=== PATIENT | male | born 1980 ===

== ENCOUNTER 2017-03-13 01:13 | Observation (INO) | payer BC ==
[2017-03-13 01:28] VITALS: BMI 21.5
[2017-03-13] MEDS ORDERED: Sodium Chloride 0.9% 1,000 ML IV STA (01:58)
[2017-03-13 02:34] LABS: BASO # 0.1 K/uL (0.0-0.2); BASO % 0.7 % (0.0-2.0); EOS # 0.3 K/uL (0.0-0.7); EOS % 1.7 % (0.0-4.0); LYMPH # 3.3 K/uL (1.0-4.3); LYMPH % 20.8 % (20.0-40.0); MEAN CELL VOLUME 92.2 fl (80.0-94.0); MEAN CORPUSCULAR HEMOGLOBIN 31.4 pg (27.0-31.0); MEAN PLATELET VOLUME 9.2 fl (7.2-11.7); MONO # 1.2 K/uL (0.0-0.8); MONO % 7.6 % (0.0-10.0); NEUT % 69.2 % (50.0-75.0); NRBC % 0.1 % (0.0-0.0); RBC 5.41 Mil/uL (4.40-5.90); RED CELL DISTRIBUTION WIDTH 13.7 % (11.5-14.5); WHITE BLOOD COUNT 15.8 K/uL (4.8-10.8)
[2017-03-13 02:42] LABS: BLOOD UREA NITROGEN 5 mg/dl (9-20); GFR AFRICAN-AMERICAN > 60; GFR NON-AFRICAN AMERICAN > 60
[2017-03-13 02:44] LABS: CALCIUM 9.2 mg/dL (8.4-10.2)
[2017-03-13] MEDS ORDERED: Potassium Chloride 20 mEq ER Tab PO ONE ×4 (02:51→21:00)
--- NOTE | 2017-03-13 03:02 | ED PDOC ---
HPI: Neurologic - General Time Seen by Provider: 03/13/17 01:16 Chief Complaint (Nursing): Back Pain Chief Complaint (Provider): Diffused Body Aches and Paresthesia - History of Present Illness Associated Symptoms: paresthesia. denies: fever/chills, loss of consciousness, nausea/vomiting Allergies/Adverse Reactions: Allergies No Known Allergies Allergy (Verified 03/13/17 01:28) Home Medications: Ambulatory Orders Desvenlafaxine Succinate [Pristiq] 50 mg PO DAILY 03/13/17 Gabapentin [Neurontin] 300 mg PO TID 03/13/17 QUEtiapine [SEROquel] 50 mg PO DAILY 03/13/17 diaZEpam [Valium] 5 mg PO PRN PRN 03/13/17 Additional Complaint(s): Mario Potter, a 36 year old male, presents to the Ed complaining of diffused body aches and paresthesias all over his body x1 day. The patient states he was performing his daily routines but then he began to feel weak and his legs gave out. He states that when his legs gave out he fell and hit his head on the chair but did not lose consciousness. The patient states he eventually took his medications neurontin, valium and seroquel and went to sleep. He reports that he got up to use the bathroom and he fell again this time sustaining a left knee injury. The patient states that he then called the ambulance. Denies headache, vomiting, fevers chest pain abdominal pain dizziness, back pain, headache. Past Medical History Reviewed: Historical Data, Nursing Documentation, Vital Signs Vital Signs: Last Vital Signs Temp 98.1 F 03/13/17 01:23 Pulse 112 H 03/13/17 01:23 Resp 15 03/13/17 01:23 BP 140/88 03/13/17 01:23 Pulse Ox 98 03/13/17 01:23 - Medical History PMH: No Chronic Diseases - Surgical History Surgical History: No Surg Hx - Family History Family History: States: Unknown Family Hx - Home Medications Home Medications: Ambulatory Orders Medication Instructions Recorded Desvenlafaxine Succinate [Pristiq] 50 mg PO DAILY 03/13/17 Gabapentin [Neurontin] 300 mg PO TID 03/13/17 QUEtiapine [SEROquel] 50 mg PO DAILY 03/13/17 diaZEpam [Valium] 5 mg PO PRN PRN 03/13/17 - Allergies Allergies/Adverse Reactions: Allergies Allergy/AdvReac Type Severity Reaction Status Date / Time No Known Allergies Allergy Verified 03/13/17 01:28 Review of Systems ROS Statement: Except As Marked, All Systems Reviewed And Found Negative Constitutional: Negative for: Fever Cardiovascular: Negative for: Chest Pain Gastrointestinal: Negative for: Vomiting, Abdominal Pain Musculoskeletal: Negative for: Back Pain Neurological: Negative for: Headache, Dizziness Physical Exam - Reviewed Nursing Documentation Reviewed: Yes Vital Signs Reviewed: Yes - Physical Exam Appears: Positive for: Non-toxic, No Acute Distress Head Exam: Positive for: ATRAUMATIC, NORMAL INSPECTION, NORMOCEPHALIC Skin: Positive for: Normal Color, Warm Eye Exam: Positive for: Normal appearance, EOMI, PERRL ENT: Positive for: Normal ENT Inspection Neck: Positive for: Normal, Painless ROM, Supple Cardiovascular/Chest: Positive for: Regular Rate, Rhythm, Chest Non Tender. Negative for: Tachycardia Respiratory: Positive for: Normal Breath Sounds. Negative for: Wheezing, Respiratory Distress Gastrointestinal/Abdominal: Positive for: Normal Exam, Bowel Sounds, Soft. Negative for: Tenderness, Guarding, Rebound Back: Positive for: Normal Inspection Extremity: Positive for: Normal ROM. Negative for: Tenderness, Pedal Edema, Deformity, Swelling Neurologic/Psych: Positive for: Alert, customer liaison II-XII (cranial nerves intact), Oriented, Cerebellar Tests (cerebellar tests normal), Gait. Negative for: Motor /Sensory Deficits - Laboratory Results Result Diagrams: 03/13/17 02:28 03/13/17 02:28 - ECG ECG: Positive for: Interpreted By Me, Viewed By Me ECG Rhythm: Positive for: Normal QRS, Normal ST Segment, Sinus Rhythm, Nonspecific Changes Interpretation Of Abn EKG: Prolonged QT Rate: 89 O2 Sat by Pulse Oximetry: 98 (RA) Pulse Ox Interpretation: Normal Medical Decision Making Medical Decision Makin Initial Impression: 36 year old female presenting with myalgia with diffuse weakness Differentials: Rhabdomyolysis, myositis Initial Plan: * EKG * Drug Screen * Magnesium * Basic Metabolic Panel * Creatine Phosphate * CBC * Potassium Chloride 40 meq PO * NS 1000mls IV 1000mls/hr * Reevaluation Scribe Attestation Documented by Caitlin Devries acting as a scribe for Karen Dorado MD. Provider Attestation: All medical record entries made by the Scribe were at my direction and personally dictated by me. I have reviewed the chart and agree that the record accurately reflects my personal performance of the history, physical exam, medical decision making, and the department course for this patient. I have also personally directed, reviewed, and agree with the discharge instructions and disposition. ED OBSERVATION Date of observation admission: 03/13/17 Time of observation admission: 03:15 - Observation admission statement Patient is being placed in observation because:: Hypokalemia - Goals of Observation Goals of observation are:: Correction of hypokalemia with potassium supplements. Disposition - Clinical Impression Clinical Impression: Hypokalemia - Patient ED Disposition Is Patient to be Admitted: Yes Discussed With : Mariela Valdivia Doctor Will See Patient In The: ED Counseled Patient/Family Regarding: Studies Performed, Diagnosis - Disposition Disposition Time: 03:15 Condition: FAIR - Pt Status Changed To: Hospital Disposition Of: Observation - POA Present On Arrival: Poor Glycemic Control
[2017-03-13] MEDS: Potassium CL 10mEq/100ml 100 ML IVPB SCH ×3 (03:19→05:21)
[2017-03-13] MEDS ORDERED: Potassium CL 10mEq/100ml 100 ML IVPB ONE (06:07)
[2017-03-13] MEDS ORDERED: Magnesium Sulfate 2 GM in Sodium Chloride 0.9% 100 ML IVPB ONE (06:08)
[2017-03-13 08:29] LABS: URINE BILIRUBIN NEGATIVE (NEGATIVE); URINE BLOOD NEGATIVE (NEGATIVE); URINE CLARITY CLEAR (Clear); URINE COLOR STRAW (YELLOW); URINE GLUCOSE (UA) NEG (Normal); URINE LEUKOCYTE ESTERASE NEG Leu/uL (Negative); URINE NITRATE NEGATIVE (NEGATIVE); URINE PROTEIN NEGATIVE (NEGATIVE); URINE UROBILINOGEN 0.2-1.0 mg/dL (0.2-1.0)
[2017-03-13 08:46] LABS: BARBITURATES, UR NEGATIVE (NEGATIVE); BENZODIAZEPINES, UR POSITIVE (NEGATIVE); OPIATES, UR NEGATIVE (NEGATIVE); PHENCYCLIDINE, UR NEGATIVE (NEGATIVE)
[2017-03-13 10:01] LABS: HEMOGLOBIN 15.7 g/dL (12.0-18.0); MEAN CELL VOLUME 91.5 fl (80.0-94.0); MEAN CORPUSCULAR HEMOGLOBIN 31.3 pg (27.0-31.0); MEAN CORPUSCULAR HGB CONC 34.2 g/dL (33.0-37.0); RBC 5.02 Mil/uL (4.40-5.90); RED CELL DISTRIBUTION WIDTH 13.6 % (11.5-14.5); WHITE BLOOD COUNT 10.2 K/uL (4.8-10.8)
[2017-03-13 10:20] LABS: BLOOD UREA NITROGEN 6 mg/dl (9-20); CALCIUM 8.4 mg/dL (8.4-10.2); GFR AFRICAN-AMERICAN > 60; GFR NON-AFRICAN AMERICAN > 60; MAGNESIUM 2.2 MG/DL (1.6-2.3)
--- NOTE | 2017-03-13 11:35 | CT ---
PROCEDURE: CT HEAD WITHOUT CONTRAST. HISTORY: s/p fall COMPARISON: None available. TECHNIQUE: Axial computed tomography images were obtained through the head/brain without intravenous contrast. Coronal and sagittal reconstructed images. Radiation dose: Total exam DLP = 953.63 mGy-cm. This CT exam was performed using one or more of the following dose reduction techniques: Automated exposure control, adjustment of the mA and/or kV according to patient size, and/or use of iterative reconstruction technique. FINDINGS: HEMORRHAGE: No intracranial hemorrhage. BRAIN: No mass effect or edema. No atrophy or chronic microvascular ischemic changes. VENTRICLES: Unremarkable. No hydrocephalus. CALVARIUM: Unremarkable. PARANASAL SINUSES: Unremarkable as visualized. No significant inflammatory changes. MASTOID AIR CELLS: Unremarkable as visualized. No inflammatory changes. OTHER FINDINGS: None. IMPRESSION: No acute intracranial abnormalities. No significant findings to account for the clinical presentation.
--- NOTE | 2017-03-13 11:43 | CT ---
PROCEDURE: CT Lumbar Spine without contrast HISTORY: LE weakness, LBP COMPARISON: None. TECHNIQUE: Axial computed tomography images were obtained of the lumbar spine without the use of intravenous contrast. Coronal and sagittal reformatted images were created and reviewed. Radiation dose: Total exam DLP = 1736.56 mGy-cm. This CT exam was performed using one or more of the following dose reduction techniques: Automated exposure control, adjustment of the mA and/or kV according to patient size, and/or use of iterative reconstruction technique. FINDINGS: VERTEBRAE: Postoperative changes from laminectomy and fusion. Interpedicular screws and disc arthroplasty at multiple levels L4, L5 and 1st sacral element. No evidence of hardware failure or migration hardware. . DISCS/SPINAL CANAL/NEURAL FORAMINA: L1-2: Unremarkable. L2-3: Unremarkable. L3-4: Unremarkable. L4-5: Postoperative findings. L5-S1: Postoperative findings. PARASPINAL SOFT TISSUES: Unremarkable. OTHER FINDINGS: None. IMPRESSION: No evidence of vertebral body fracture. Normal vertebral body heights and alignment lower thoracic and upper lumbar region. Satisfactory position alignment of orthopedic hardware including disc arthroplasty and interpedicular screws L4, L5 and S1.
[2017-03-13] MEDS: Potassium Chloride 20 MEQ in Sodium Chloride 0.45% 1,000 ML IV SCH ×2 (11:45→23:10)
--- NOTE | 2017-03-13 12:08 | RAD ---
HISTORY: leukocytosis COMPARISON: No prior. TECHNIQUE: Chest PA and lateral FINDINGS: LUNGS: No active pulmonary disease. PLEURA: No significant pleural effusion identified. No pneumothorax apparent. CARDIOVASCULAR: Normal. OSSEOUS STRUCTURES: No significant abnormalities. VISUALIZED UPPER ABDOMEN: Normal. OTHER FINDINGS: None. IMPRESSION: No active disease. No preliminary report provided by emergency department personnel.
[2017-03-13] MEDS: Enoxaparin 40 mg Syringe SC SCH (13:46)
[2017-03-13 15:29] VITALS: RESP 20
[2017-03-13 19:11] LABS: T4 8.08 ug/dl (5.5-11.0)
[2017-03-13 19:25] LABS: T3 1.13 nmol/L (1.49-2.60)
--- NOTE | 2017-03-13 23:14 | CP.PCM.HP ---
Past Patient History - Past Medical History & Family History Past Medical History?: Yes - Past Social History Smoking Status: Never Smoked - CARDIAC Hx Cardiac Disorders: No - PULMONARY Hx Respiratory Disorders: No - NEUROLOGICAL Hx Neurological Disorder: No - HEENT Hx HEENT Problems: No - RENAL Hx Chronic Kidney Disease: No - ENDOCRINE/METABOLIC Hx Endocrine Disorders: No - HEMATOLOGICAL/ONCOLOGICAL Hx Blood Disorders: No - INTEGUMENTARY Hx Dermatological Problems: No - MUSCULOSKELETAL/RHEUMATOLOGICAL Hx Back Pain: Yes Hx Falls: Yes - GASTROINTESTINAL Hx Gastrointestinal Disorders: No - GENITOURINARY/GYNECOLOGICAL Hx Genitourinary Disorders: No - PSYCHIATRIC Hx Depression: Yes Hx Substance Use: No - SURGICAL HISTORY Hx Appendectomy: Yes Hx Orthopedic Surgery: Yes - ANESTHESIA Hx Anesthesia: Yes Hx Anesthesia Reactions: No Meds Allergies/Adverse Reactions: Allergies Allergy/AdvReac Type Severity Reaction Status Date / Time No Known Allergies Allergy Verified 03/13/17 01:28 Results - Vital Signs Recent Vital Signs: Last Vital Signs Temp 97.6 F 03/13/17 20:12 Pulse 91 H 03/13/17 20:12 Resp 20 03/13/17 20:12 BP 129/78 03/13/17 20:12 Pulse Ox 97 03/13/17 20:12 - Labs Result Diagrams: 03/13/17 09:45 03/13/17 09:45 Labs: Laboratory Results - last 24 hr 03/13/17 03/13/17 03/13/17 08:15 08:15 08:15 WBC RBC Hgb Hct MCV MCH MCHC RDW Plt Count ESR Sodium Potassium Chloride Carbon Dioxide Anion Gap BUN Creatinine Est GFR ( Amer) Est GFR (Non-Af Amer) POC Glucose (mg/dL) Random Glucose Hemoglobin A1c Lactic Acid Calcium Phosphorus Magnesium Total Creatine Kinase Thyroxine (T4) Total T3 TSH 3rd Generation Urine Color Straw Urine Clarity Clear Urine pH 6.0 Ur Specific [place] 1.006 Urine Protein Negative Urine Glucose (UA) Neg Urine Ketones Negative Urine Blood Negative Urine Nitrate Negative Urine Bilirubin Negative Urine Urobilinogen 0.2-1.0 Ur Leukocyte Esterase Neg Urine RBC (Auto) 2 Urine Microscopic WBC 1 Ur Random Sodium 58 Ur Random Potassium 3.5 Urine Opiates Screen Negative Urine Methadone Screen Negative Ur Barbiturates Screen Negative Ur Phencyclidine Scrn Negative Ur Amphetamines Screen Negative U Benzodiazepines Scrn Positive H U Oth Cocaine Metabols Negative U Cannabinoids Screen Negative 03/13/17 03/13/17 03/13/17 09:45 09:45 09:45 WBC 10.2 RBC 5.02 Hgb 15.7 Hct 45.9 MCV 91.5 MCH 31.3 H MCHC 34.2 RDW 13.6 Plt Count 211 ESR Sodium 142 Potassium 2.3 L* D Chloride 109 H Carbon Dioxide 24 Anion Gap 11 BUN 6 L Creatinine 0.9 Est GFR ( Amer) > 60 Est GFR (Non-Af Amer) > 60 POC Glucose (mg/dL) Random Glucose 138 H Hemoglobin A1c 5.4 Lactic Acid Calcium 8.4 Phosphorus Magnesium Total Creatine Kinase Thyroxine (T4) Total T3 TSH 3rd Generation 1.02 Urine Color Urine Clarity Urine pH Ur Specific [place] Urine Protein Urine Glucose (UA) Urine Ketones Urine Blood Urine Nitrate Urine Bilirubin Urine Urobilinogen Ur Leukocyte Esterase Urine RBC (Auto) Urine Microscopic WBC Ur Random Sodium Ur Random Potassium Urine Opiates Screen Urine Methadone Screen Ur Barbiturates Screen Ur Phencyclidine Scrn Ur Amphetamines Screen U Benzodiazepines Scrn U Oth Cocaine Metabols U Cannabinoids Screen 03/13/17 03/13/17 03/13/17 09:45 12:27 14:37 WBC RBC Hgb Hct MCV MCH MCHC RDW Plt Count ESR Sodium Potassium Chloride Carbon Dioxide Anion Gap BUN Creatinine Est GFR ( Amer) Est GFR (Non-Af Amer) POC Glucose (mg/dL) 111 H Random Glucose Hemoglobin A1c Lactic Acid 1.0 Calcium Phosphorus 2.1 L Magnesium 2.2 Total Creatine Kinase Thyroxine (T4) Total T3 TSH 3rd Generation Urine Color Urine Clarity Urine pH Ur Specific [place] Urine Protein Urine Glucose (UA) Urine Ketones Urine Blood Urine Nitrate Urine Bilirubin Urine Urobilinogen Ur Leukocyte Esterase Urine RBC (Auto) Urine Microscopic WBC Ur Random Sodium Ur Random Potassium Urine Opiates Screen Urine Methadone Screen Ur Barbiturates Screen Ur Phencyclidine Scrn Ur Amphetamines Screen U Benzodiazepines Scrn U Oth Cocaine Metabols U Cannabinoids Screen 03/13/17 03/13/17 03/13/17 16:07 18:28 18:28 WBC RBC Hgb Hct MCV MCH MCHC RDW Plt Count ESR 21 H Sodium Potassium Chloride Carbon Dioxide Anion Gap BUN Creatinine Est GFR ( Amer) Est GFR (Non-Af Amer) POC Glucose (mg/dL) 97 Random Glucose Hemoglobin A1c Lactic Acid Calcium Phosphorus Magnesium Total Creatine Kinase 355 H Thyroxine (T4) 8.08 Total T3 1.13 L TSH 3rd Generation 1.23 Urine Color Urine Clarity Urine pH Ur Specific [place] Urine Protein Urine Glucose (UA) Urine Ketones Urine Blood Urine Nitrate Urine Bilirubin Urine Urobilinogen Ur Leukocyte Esterase Urine RBC (Auto) Urine Microscopic WBC Ur Random Sodium Ur Random Potassium Urine Opiates Screen Urine Methadone Screen Ur Barbiturates Screen Ur Phencyclidine Scrn Ur Amphetamines Screen U Benzodiazepines Scrn U Oth Cocaine Metabols U Cannabinoids Screen 03/13/17 21:40 WBC RBC Hgb Hct MCV MCH MCHC RDW Plt Count ESR Sodium Potassium Chloride Carbon Dioxide Anion Gap BUN Creatinine Est GFR ( Amer) Est GFR (Non-Af Amer) POC Glucose (mg/dL) 149 H Random Glucose Hemoglobin A1c Lactic Acid Calcium Phosphorus Magnesium Total Creatine Kinase Thyroxine (T4) Total T3 TSH 3rd Generation Urine Color Urine Clarity Urine pH Ur Specific [place] Urine Protein Urine Glucose (UA) Urine Ketones Urine Blood Urine Nitrate Urine Bilirubin Urine Urobilinogen Ur Leukocyte Esterase Urine RBC (Auto) Urine Microscopic WBC Ur Random Sodium Ur Random Potassium Urine Opiates Screen Urine Methadone Screen Ur Barbiturates Screen Ur Phencyclidine Scrn Ur Amphetamines Screen U Benzodiazepines Scrn U Oth Cocaine Metabols U Cannabinoids Screen
[2017-03-14 01:54] LABS: BLOOD UREA NITROGEN 8 mg/dl (9-20); CALCIUM 8.5 mg/dL (8.4-10.2); GFR AFRICAN-AMERICAN > 60; GFR NON-AFRICAN AMERICAN > 60
[2017-03-14 05:16] VITALS: O2SAT 97
--- NOTE | 2017-03-14 05:46 | CON ---
DATE OF EVALUATION: 03/13/2017 REASON FOR CONSULTATION: Generalized weakness. CHIEF COMPLAINT: The patient was brought in to [facility] with a history of weakness, tend to fall at home. From neurological point of view, we have been called in to evaluate for his weakness. HISTORY OF PRESENT ILLNESS: Mr. Mario Potter is a 36-year-old right-handed well-built male in usual state of health, being presenting with 5 days' history of watery diarrhea and consumed Swedish food prior to the hospitalization. This morning, he woke up, sat up in the chair and he could not able to have strength to get up and he slid from the bed and hit his head. He could not be able to get up by himself. No history of loss of consciousness. No history of bowel or bladder incontinence at the scene. He got up on using stable structures next to him. PAST MEDICAL HISTORY: Significant for work related injury in the lower back resulting lumber stenosis and herniated disc required surgery in December 2014. He had artificial bone fused, then rejection of artificial bone and he did undergone followup surgery in December 2015. At this time, he had an autologous bone fusion with metallic plate being placed. When he had a second surgery, he did have a significant weakness. He was told that his potassium was low. At that time, he was following surgery, he was under medication. He could not quantify his weakness. PERSONAL HISTORY: Denies smoking or alcohol use. ALLERGIES: NO KNOWN ALLERGIES. MEDICATIONS: Quetiapine and gabapentin. PHYSICAL EXAMINATION: VITAL SIGNS: Blood pressure 108/70, mean arterial pressure of 82, respiratory rate 18, and temperature afebrile. NECK: Supple. No carotid bruits. CARDIOPULMONARY: Heart sounds regular. CHEST: Fair air entry. EXTREMITIES: No edema in legs. NEUROLOGIC EXAMINATION: MENTAL STATUS EXAMINATION: He is awake, alert, oriented to person, place, and time. Speech is clear. Naming, repetition, fluency, comprehension all within normal. CRANIAL NERVE EXAMINATION: Visual field intact. Pupil reactive to light. Extraocular movement normal. No nystagmus. No facial sensory deficit. No facial asymmetry. Hearing is normal. Tongue is midline. Good gag. MOTOR EXAMINATION: He has a significant weakness bilaterally comparing proximal more than his distal weakness. His neck flexion is 4/5. Hand seo intern is 4/5, proximal is 3+ to 4- or 5. There is no fasciculation at rest. DEEP TENDON REFLEXES: Biceps, brachialis, and triceps are absent. Both knees are 2+. Both ankles are 2+. Plantars are downgoing. SENSORY EXAMINATION: Grossly intact. COORDINATION: Gait could not be able to be done. Coordination also disproportionates due to his weakness, which is abnormal. EXAMINATION OF MUSCLES: No severe tenderness on palpation. CONCLUSION: Upon reviewing his history and neurological examination, Mr. Mario Potter has been presenting with generalized weakness of all muscle groups in proximal more than distally consistent with possible periodic paralysis. On reviewing his blood workup, this is secondary to periodic hypokalemic paralysis. The patient did have diarrhea and he consumed Swedish food, probably the risk factors to provoke his illness. He also had one episode following his surgery, which may be of stress-induced hypokalemia. 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 The current attack triggered by diarrhea and large serbian carbohydrate meal LABORATORY DATA: His blood workup; WBC 10.2, hemoglobin 15.7, hematocrit 45.9, platelet 211. Sodium 142, potassium 2.3, which was improved from 1.7 at the time of admission. Chloride 109, BUN is 6, and CPK 355. TSH 1.02. Magnesium 1.6. Urinalysis negative. Urine tox screen positive for benzos. RECOMMENDATIONS: 1. Continue hydration with potassium supplement. 2. Fall precaution. 3. Since he is taking oral food regularly, IV is not necessary, 4. No need K+ IV supplements 5. Encourage OJ,Banana and dry fruits. 6. Diamox sequel 500 mg bid 7. Follow Potassium level. 8. Physical therapy and out of bed, this will be resumed. The patient claims that his strength is improved by 50% since the time of his admission. Hopefully, potassium supplement will improve his strength. 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 The patient was advised to take food supplements, which have a higher potassium content on a regular basis and periodic followup of his blood workup. The patient's condition in meanwhile discussed with him. The patient will be followed closely while he is in the hospital. Srinivas Sparrow MD [email or web address]
[2017-03-14] MEDS ORDERED: Potassium Chloride 40 MEQ in Sodium Chloride 0.45% 1,000 ML IV SCH (06:45)
[2017-03-14] MEDS ORDERED: Sodium Chloride 0.45% 500ml 500 ML SOL IV SCH (08:00)
[2017-03-14 08:20] LABS: BLOOD UREA NITROGEN 9 mg/dl (9-20); CALCIUM 8.3 mg/dL (8.4-10.2); GFR AFRICAN-AMERICAN > 60; GFR NON-AFRICAN AMERICAN > 60
[2017-03-14 08:22] VITALS: BP 148/94; TEMP 97.8
[2017-03-14] MEDS: Enoxaparin 40 mg Syringe SC SCH (08:27)
[2017-03-14] MEDS ORDERED: Potassium Chloride 20 mEq ER Tab PO SCH (09:00)
[2017-03-14] MEDS ORDERED: acetaZOLAMIDE 500 mg SR Cap PO SCH (09:00)
[2017-03-14 09:51] VITALS: PULSE 76
--- NOTE | 2017-03-14 14:22 | CARD ---
APPROVED REPORT EKG Measurement Heart [id number] OK [id number] <Conclusion> Normal sinus rhythm Nonspecific T wave abnormality Abnormal ECG
--- NOTE | 2017-03-14 15:06 | CP.PCM.DIS ---
Provider - Provider Date of Admission: 03/13/17 03:15 Attending physician: Mariela Valdivia MD Primary care physician: Chloe Cui MD Time Spent in preparation of Discharge (in minutes): 15 Hospital Course - Lab Results Lab Results: Micro Results 03/13/17 09:45 Blood Blood Culture - Preliminary NO GROWTH AFTER 24 HOURS Most Recent Lab Values WBC 10.2 K/uL (4.8-10.8) 03/13/17 09:45 RBC 5.02 Mil/uL (4.40-5.90) 03/13/17 09:45 Hgb 15.7 g/dL (12.0-18.0) 03/13/17 09:45 Hct 45.9 % (35.0-51.0) 03/13/17 09:45 MCV 91.5 fl (80.0-94.0) 03/13/17 09:45 MCH 31.3 pg (27.0-31.0) H 03/13/17 09:45 MCHC 34.2 g/dL (33.0-37.0) 03/13/17 09:45 RDW 13.6 % (11.5-14.5) 03/13/17 09:45 Plt Count 211 K/uL (130-400) 03/13/17 09:45 MPV 9.2 fl (7.2-11.7) 03/13/17 02:28 Neut % (Auto) 69.2 % (50.0-75.0) 03/13/17 02:28 Lymph % (Auto) 20.8 % (20.0-40.0) 03/13/17 02:28 [place] % (Auto) 7.6 % (0.0-10.0) 03/13/17 02:28 Eos % (Auto) 1.7 % (0.0-4.0) 03/13/17 02:28 Baso % (Auto) 0.7 % (0.0-2.0) 03/13/17 02:28 Neut # 11.0 K/uL (1.8-7.0) H 03/13/17 02:28 Lymph # 3.3 K/uL (1.0-4.3) 03/13/17 02:28 [place] # 1.2 K/uL (0.0-0.8) H 03/13/17 02:28 Eos # 0.3 K/uL (0.0-0.7) 03/13/17 02:28 Baso # 0.1 K/uL (0.0-0.2) 03/13/17 02:28 ESR 21 mm/hr (0-15) H 03/13/17 18:28 Sodium 143 mmol/l (132-148) 03/14/17 06:00 Potassium 2.8 MMOL/L (3.6-5.0) L 03/14/17 06:00 Chloride 106 mmol/L (98-107) 03/14/17 06:00 Carbon Dioxide 32 mmol/L (22-30) H 03/14/17 06:00 Anion Gap 8 (10-20) L 03/14/17 06:00 BUN 9 mg/dl (9-20) 03/14/17 06:00 Creatinine 0.9 mg/dL (0.8-1.5) 03/14/17 06:00 Est GFR ( Amer) > 60 03/14/17 06:00 Est GFR (Non-Af Amer) > 60 03/14/17 06:00 POC Glucose (mg/dL) 93 mg/dL (65-110) 03/14/17 05:51 Random Glucose 98 mg/dL (75-110) 03/14/17 06:00 Hemoglobin A1c 5.4 % (4.2-6.5) 03/13/17 09:45 Lactic Acid 1.0 MMOL/L (0.7-2.1) 03/13/17 14:37 Calcium 8.3 mg/dL (8.4-10.2) L 03/14/17 06:00 Phosphorus 2.1 mg/dl (2.5-4.5) L 03/13/17 09:45 Magnesium 2.2 MG/DL (1.6-2.3) 03/13/17 09:45 Total Creatine Kinase 355 U/L (55-170) H 03/13/17 18:28 C-React Prot High Sens 7.70 mg/L (1.00-3.00) H 03/13/17 18:28 Thyroxine (T4) 8.08 ug/dl (5.5-11.0) 03/13/17 18:28 Total T3 1.13 nmol/L (1.49-2.60) L 03/13/17 18:28 TSH 3rd Generation 1.23 mIU/ML (0.46-4.68) 03/13/17 18:28 Urine Color Straw (YELLOW) 03/13/17 08:15 Urine Clarity Clear (Clear) 03/13/17 08:15 Urine pH 6.0 (5.0-8.0) 03/13/17 08:15 Ur Specific [place] 1.006 (1.003-1.030) 03/13/17 08:15 Urine Protein Negative mg/dL (NEGATIVE) 03/13/17 08:15 Urine Glucose (UA) Neg mg/dL (Normal) 03/13/17 08:15 Urine Ketones Negative mg/dL (NEGATIVE) 03/13/17 08:15 Urine Blood Negative (NEGATIVE) 03/13/17 08:15 Urine Nitrate Negative (NEGATIVE) 03/13/17 08:15 Urine Bilirubin Negative (NEGATIVE) 03/13/17 08:15 Urine Urobilinogen 0.2-1.0 mg/dL (0.2-1.0) 03/13/17 08:15 Ur Leukocyte Esterase Neg Fede/uL (Negative) 03/13/17 08:15 Urine RBC (Auto) 2 /hpf (0-3) 03/13/17 08:15 Urine Microscopic WBC 1 /hpf (0-5) 03/13/17 08:15 Ur Random Sodium 58 meq/L 03/13/17 08:15 Ur Random Potassium 3.5 mmol/L 03/13/17 08:15 Urine Opiates Screen Negative (NEGATIVE) 03/13/17 08:15 Urine Methadone Screen Negative (NEGATIVE) 03/13/17 08:15 Ur Barbiturates Screen Negative (NEGATIVE) 03/13/17 08:15 Ur Phencyclidine Scrn Negative (NEGATIVE) 03/13/17 08:15 Ur Amphetamines Screen Negative (NEGATIVE) 03/13/17 08:15 U Benzodiazepines Scrn Positive (NEGATIVE) H 03/13/17 08:15 U Oth Cocaine Metabols Negative (NEGATIVE) 03/13/17 08:15 U Cannabinoids Screen Negative (NEGATIVE) 03/13/17 08:15 Discharge Exam - Head Exam Head Exam: ATRAUMATIC, NORMAL INSPECTION, NORMOCEPHALIC Discharge Plan - Follow Up Plan Condition: FAIR Disposition: AGAINST MEDICAL ADVICE Instructions: Potassium Content of Foods List (DC), Hypokalemia (DC) Additional Instructions: Patient is A,Ox3, signed AMA despite of education on risks involved with hypokalemia. Patient encouraged to follow up with his primary care provider within next week and include in daily dietary regimen foods high in potassium. Explained if patient experiences muscle weakness, fatigue, muscle cramps go to the nearest ER. Patient verbalized understanding. Referrals: Chloe Cui MD [Primary Care Provider] -
[2017-03-14 16:17] LABS: ALDOLASE 6.3 U/L (<=8.1)
== END 2017-03-14 09:30 | disposition left against medical advice (07) ==
LOC: H.ER 01:13 → H.EROBSV 03:15 → H.ERHOLD 06:15 → H.TEL 09:04
PROVIDERS: ADMIT Internal Medicine; ATTEND Internal Medicine
DX: E87.6 Hypokalemia (principal); M60.9 Myositis, unspecified; M62.82 Rhabdomyolysis; F32.9 Major depressive disorder, single episode, unspecified; M54.9 Dorsalgia, unspecified
CPT/HCPCS: 36415; 70450; 71020; 72131; 80048; 81003; 82085; 82436; 82550; 82948; 83036; 83605; 83735; 84100; 84132; 84300; 84436; 84443; 84480; 85025; 85027; 85651; 86140; 86376; 86430; 87040; 93005; 99285; G0378; G0480; J1650; J3475; J3480; J7030; J7040

== ENCOUNTER 2017-06-20 10:36 | Emergency (ER) | payer BC ==
[2017-06-20 10:46] VITALS: BP 156/88; RESP 16; TEMP 98.2; BMI 30.4
[2017-06-20 10:57] VITALS: O2SAT 98
[2017-06-20 11:00] VITALS: PULSE 78
[2017-06-20] MEDS ORDERED: Albuterol-Ipratrop 3 mg / 0.5 (3 ml) UD INH STA ×3 (11:02→12:24)
--- NOTE | 2017-06-20 11:14 | ED PDOC ---
HPI: CCC, URI, Sore Throat Time Seen by Provider: 06/20/17 10:58 Chief Complaint (Nursing): Chest Pain Chief Complaint (Provider): post tussive CP History Per: Patient History/Exam Limitations: no limitations Additional Complaint(s): 36yo M in ED for eval of chest pain x 3-4days note after forceful coughing ( sputum production) lasting about 20mins alleviated with rest. admits to subjective fever and chills with body aches. denies radiation of chest pain. denies diaphoresis, denies back pain or SOB, abd pain. PMhx: tobacco use. Past Medical History Reviewed: Historical Data, Nursing Documentation, Vital Signs Vital Signs: Last Vital Signs Temp 98.2 F 06/20/17 10:45 Pulse 78 06/20/17 10:58 Resp 16 06/20/17 10:45 BP 156/88 H 06/20/17 10:45 Pulse Ox 98 06/20/17 11:15 - Medical History PMH: Back Problems, Depression Denies: Chronic Kidney Disease - Surgical History Surgical History: Appendectomy, Back Surgery - Family History Family History: States: Unknown Family Hx - Home Medications Home Medications: Ambulatory Orders Medication Instructions Recorded Desvenlafaxine Succinate [Pristiq] 50 mg PO DAILY 03/13/17 Gabapentin [Neurontin] 300 mg PO TID 03/13/17 QUEtiapine [SEROquel] 50 mg PO DAILY 03/13/17 diaZEpam [Valium] 5 mg PO PRN PRN 03/13/17 Albuterol HFA [Ventolin HFA 90 2 puff IH Q6 #200 puff 06/20/17 mcg/actuation (8 g)] Dextromethorphan Polistirex 30 mg PO BID #100 keith.er.12h 06/20/17 [Delsym] predniSONE [predniSONE Tab] 20 mg PO BID #8 tab 06/20/17 - Allergies Allergies/Adverse Reactions: Allergies Allergy/AdvReac Type Severity Reaction Status Date / Time No Known Allergies Allergy Verified 06/20/17 10:55 Curb-65 Severity Score - CURB-65 Severity Score Confusion: No Bun >19mg/dl (>7mmol/L): No Respiratory Rate greater than/equal to 30: No Systolic BP <90 or Diastolic BP less than/equal 60mmHg: No Age >64: No Curb-65 Score: 0 Percentage 30-day mortality: 0.6% Review of Systems ROS Statement: Except As Marked, All Systems Reviewed And Found Negative Cardiovascular: Positive for: Chest Pain. Negative for: Palpitations, Orthopnea , Paroxysmal Noc. Dyspnea, Edema, Light Headedness Respiratory: Positive for: Cough. Negative for: Shortness of Breath, Hemoptysis , SOB with Exertion, Pleuritic Pain, Sputum, Wheezing Gastrointestinal: Negative for: Nausea, Vomiting, Abdominal Pain Physical Exam - Reviewed Nursing Documentation Reviewed: Yes Vital Signs Reviewed: Yes - Physical Exam Appears: Positive for: Well, Non-toxic, No Acute Distress Skin: Positive for: Normal Color, Warm, DRY Cardiovascular/Chest: Positive for: Regular Rate, Rhythm, Chest Non Tender. Negative for: Edema, Gallop, JVD, Murmur, Bradycardia, Tachycardia, Ectopy, Friction Rub, Irregularly Irregular Respiratory: Positive for: Normal Breath Sounds. Negative for: Decreased Breath Sounds Back: Positive for: Normal Inspection Extremity: Positive for: Normal ROM Neurologic/Psych: Positive for: Alert, Oriented - Laboratory Results Result Diagrams: 06/20/17 11:20 06/20/17 11:20 - ECG O2 Sat by Pulse Oximetry: 98 - Progress ED Course And Treament: Orders Category Date Time Status COMP METABOLIC PANEL Stat Chem 06/20/17 11:02 Uncollected TROPONIN I Stat Chem 06/20/17 11:02 Uncollected CHEST TWO VIEWS (PA/LAT) [RAD] Stat Exams 06/20/17 11:02 Ordered CBC (WITH DIFFERENTIAL) Stat GE 06/20/17 11:00 Uncollected Albuterol/Ipratropium [Duoneb 3 mg/0.5 mg (3 ml) UD] Med 06/20/17 11:02 Stat 3 ml INH [id number] STA NEBULIZER TREATMENT [RT] Stat Resp 06/20/17 11:02 Ordered PEAK FLOW PRE/POST TX .PRE/POST TREATMENT Resp 06/20/17 11:02 Ordered INFLUENZA A B Stat Serology 06/20/17 11:06 Uncollected Medical Decision Making Medical Decision Making: pt with negative d-dimer pt most liekly with viral illness will d.c with steroids and albuterol and deslysm with f.u with director internal communications 06/20/17 06/20/1717 13:24 12:44 11:20 WBC RBC Hgb Hct MCV MCH MCHC RDW Plt Count MPV Neut % (Auto) Lymph % (Auto) Glynn % (Auto) Eos % (Auto) Baso % (Auto) Neut # Lymph # Glynn # Eos # Baso # D-Dimer, Quantitative 180 Sodium Potassium Chloride Carbon Dioxide Anion Gap BUN Creatinine Est GFR ( Amer) Est GFR (Non-Af Amer) Random Glucose Calcium Total Bilirubin AST ALT Alkaline Phosphatase Troponin I Total Protein Albumin Globulin Albumin/Globulin Ratio Urine Color Yellow Urine Clarity Clear Urine pH 7.0 Ur Specific Bowman 1.017 Urine Protein Negative Urine Glucose (UA) Neg Urine Ketones Negative Urine Blood Small Urine Nitrate Negative Urine Bilirubin Negative Urine Urobilinogen 4.0 Ur Leukocyte Esterase Neg Urine RBC (Auto) 2 Urine Microscopic WBC < 1 Ur Squamous Epith Cells < 1 Influenza Typ A,B (EIA) Negative for flu a/b 06/20/17 06/20/17 11:20 11:20 WBC 13.7 H RBC 5.18 Hgb 16.5 Hct 47.9 MCV 92.4 MCH 31.8 H MCHC 34.4 RDW 13.5 Plt Count 258 MPV 8.7 Neut % (Auto) 68.2 Lymph % (Auto) 22.9 Glynn % (Auto) 6.3 Eos % (Auto) 2.0 Baso % (Auto) 0.6 Neut # 9.4 H Lymph # 3.2 Glynn # 0.9 H Eos # 0.3 Baso # 0.1 D-Dimer, Quantitative Sodium 145 Potassium 3.7 Chloride 107 Carbon Dioxide 26 Anion Gap 16 BUN 14 Creatinine 1.0 Est GFR ( Amer) > 60 Est GFR (Non-Af Amer) > 60 Random Glucose 125 H Calcium 9.0 Total Bilirubin 0.3 AST 20 ALT 23 Alkaline Phosphatase 88 Troponin I < 0.0120 Total Protein 7.5 Albumin 4.3 Globulin 3.2 Albumin/Globulin Ratio 1.4 Urine Color Urine Clarity Urine pH Ur Specific Bowman Urine Protein Urine Glucose (UA) Urine Ketones Urine Blood Urine Nitrate Urine Bilirubin Urine Urobilinogen Ur Leukocyte Esterase Urine RBC (Auto) Urine Microscopic WBC Ur Squamous Epith Cells Influenza Typ A,B (EIA) Disposition - Clinical Impression Clinical Impression: Upper respiratory infection - Patient ED Disposition Is Patient to be Admitted: No Counseled Patient/Family Regarding: Studies Performed, Diagnosis, Need For Followup, Rx Given - Disposition Disposition: Routine/Home Disposition Time: 14:51 Condition: STABLE Prescriptions: Albuterol HFA [Ventolin HFA 90 mcg/actuation (8 g)] 2 puff IH Q6 #200 puff Dextromethorphan Polistirex [Delsym] 30 mg PO BID #100 keith.er.12h predniSONE [predniSONE Tab] 20 mg PO BID #8 tab Instructions: Upper Respiratory Infection (ED) Forms: [employer] ([place]osotho)
[2017-06-20] MEDS ORDERED: Albuterol-Ipratrop 3 mg / 0.5 (3 ml) UD ONE ×2 (11:27→12:39)
--- NOTE | 2017-06-20 11:27 | RAD ---
HISTORY: cough COMPARISON: Comparison chest 03/13/2017. TECHNIQUE: Chest PA and lateral FINDINGS: LUNGS: No focal consolidation. The interstitial markings are slightly increased with a few scattered peribronchial cuffing changes. Rule out sequela of reactive/inflammatory airway disease or viral illness. PLEURA: No significant pleural effusion identified. No pneumothorax apparent. CARDIOVASCULAR: Normal. OSSEOUS STRUCTURES: No significant abnormalities. VISUALIZED UPPER ABDOMEN: Normal. OTHER FINDINGS: None. IMPRESSION: No focal consolidation. The interstitial markings are slightly increased with a few scattered peribronchial cuffing changes. Rule out sequela of reactive/inflammatory airway disease or viral illness.
[2017-06-20 11:35] LABS: BASO # 0.1 K/uL (0.0-0.2); BASO % 0.6 % (0.0-2.0); EOS # 0.3 K/uL (0.0-0.7); HEMATOCRIT 47.9 % (35.0-51.0); LYMPH # 3.2 K/uL (1.0-4.3); LYMPH % 22.9 % (20.0-40.0); MEAN CELL VOLUME 92.4 fl (80.0-94.0); MEAN CORPUSCULAR HEMOGLOBIN 31.8 pg (27.0-31.0); MEAN CORPUSCULAR HGB CONC 34.4 g/dL (33.0-37.0); MEAN PLATELET VOLUME 8.7 fl (7.2-11.7); MONO # 0.9 K/uL (0.0-0.8); MONO % 6.3 % (0.0-10.0); NEUT # 9.4 K/uL (1.8-7.0); NEUT % 68.2 % (50.0-75.0); NRBC % 0.1 % (0.0-0.0); RED CELL DISTRIBUTION WIDTH 13.5 % (11.5-14.5); WHITE BLOOD COUNT 13.7 K/uL (4.8-10.8)
[2017-06-20 11:50] LABS: ALB/GLOB RATIO 1.4 (1.0-2.1); ALKALINE PHOSPHATASE 88 U/L (38-126); ALT/SGPT 23 U/L (21-72); AST/SGOT 20 U/L (17-59); BILIRUBIN,TOTAL 0.3 mg/dl (0.2-1.3); BLOOD UREA NITROGEN 14 mg/dl (9-20); CARBON DIOXIDE 26 mmol/L (22-30); CHLORIDE 107 mmol/L (98-107); GFR AFRICAN-AMERICAN > 60; GLUCOSE,RANDOM 125 mg/dL (75-110); SODIUM 145 mmol/l (132-148); TOTAL PROTEIN 7.5 G/DL (6.3-8.2)
[2017-06-20 11:52] LABS: POTASSIUM 3.7 MMOL/L (3.6-5.0)
[2017-06-20 14:01] LABS: RBC URINE 2 /hpf (0-3); URINE BILIRUBIN NEGATIVE (NEGATIVE); URINE BLOOD SMALL (NEGATIVE); URINE COLOR YELLOW (YELLOW); URINE GLUCOSE (UA) NEG (Normal); URINE KETONE NEGATIVE (NEGATIVE); URINE LEUKOCYTE ESTERASE NEG Leu/uL (Negative); URINE PROTEIN NEGATIVE (NEGATIVE); WBC URINE < 1 /hpf (0-5)
== END 2017-06-20 15:25 | disposition home or self-care (01) ==
LOC: H.ER 10:36
DX: J06.9 Acute upper respiratory infection, unspecified (principal); F32.9 Major depressive disorder, single episode, unspecified
CPT/HCPCS: 71020; 80053; 81003; 84484; 85025; 85378; 87804; 94640; 96374; 99282; J2930